=== PATIENT | female | born 1960 | race Caucasian/White ===

== ENCOUNTER 2019-11-21 10:28 | Emergency (ER) | payer SELFPAY ==
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
[2019-11-22 08:38] VITALS: BP 153/85; O2SAT 98
[2019-11-22 08:39] VITALS: TEMP 99.2
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
== END 2019-11-21 13:13 | disposition home or self-care (01) ==
LOC: ER 10:28
DX: S39.012A Strain of muscle, fascia and tendon of lower back, initial encounter (principal); S16.1XXA Strain of muscle, fascia and tendon at neck level, initial encounter; V49.40XA Driver injured in collision with unspecified motor vehicles in traffic accident, initial encounter; I10 Essential (primary) hypertension; F17.210 Nicotine dependence, cigarettes, uncomplicated
CPT/HCPCS: 72100; 72125; 99283